=== PATIENT | female | born 1980 | race Caucasian/White ===

== ENCOUNTER → 2016-08-09 | Outpatient (CLI) | payer BC ==
[~2016-08-09] MED LIST: PRENTAB26 PO
== END | disposition home or self-care (01) ==
LOC: C.PAPS 08:04
PROVIDERS: ATTEND Obstetrics & Gynecology
DX: Z01.419 Encounter for gynecological examination (general) (routine) without abnormal findings (principal)

== ENCOUNTER → 2016-08-09 | Outpatient (CLI) | payer BC ==
[2016-08-13 21:14] LABS: CHLAMYDIA TRACH RNA*** NOT DETECTED (NOT DETECTED); GC (NEIS GONORRHOEAE)RNA** NOT DETECTED (NOT DETECTED)
== END | disposition home or self-care (01) ==
LOC: C.LABSPEC 15:42
PROVIDERS: ATTEND Obstetrics & Gynecology
DX: Z34.01 Encounter for supervision of normal first pregnancy, first trimester (principal)

== ENCOUNTER → 2016-09-24 | Outpatient (CLI) | payer BC ==
[2016-09-24 09:32] LABS: BASO % 0.2 %; BASO ABS # 0.01 K/uL (0-0.2); COMPLETE YES; EOS % 0.8 %; HEMATOCRIT 36.9 % (37-47); IG% 0.2 %; LYMPH % 26.1 %; LYMPH ABS # 1.62 K/uL (1.2-3.4); MEAN CELL VOLUME 90.2 fL (80-100); MEAN CORPUSCULAR HEMOGLOBIN 30.6 pg (25-34); MEAN CORPUSCULAR HGB CONC 33.9 g/dl (32-36); MONO % 6.1 %; NEUT % 66.6 %; PLATELET COUNT 235 K/uL (130-400); RED BLOOD COUNT 4.09 M/uL (4.2-5.4); WHITE BLOOD COUNT 6.21 K/uL (4.8-10.8)
[2016-09-24 09:58] LABS: GTGD 50 Grams
== END | disposition home or self-care (01) ==
LOC: C.LAB 07:04
PROVIDERS: ATTEND Obstetrics & Gynecology
DX: Z34.02 Encounter for supervision of normal first pregnancy, second trimester (principal)

== ENCOUNTER 2017-03-05 00:15 | Inpatient (IN) | payer BC ==
[~2017-03-05] VITALS: Ht 182.9 cm; Wt 137.4 kg
[2017-03-12 21:22] VITALS: Ht 182.9 cm; Wt 137.4 kg
[2017-03-12] MEDS ORDERED: PRENTAB26 PO (21:25)
[2017-03-12] MEDS ORDERED: LACTATED RINGER'S 1000ML 1,000 ML IV SCH (21:36)
[2017-03-12] MEDS ORDERED: LACTATED RINGER'S 1000ML 1,000 ML IV PRN (21:36)
[2017-03-12] MEDS ORDERED: DINOPROSTONE 10 MG INSERT PV STA (21:42)
[2017-03-12 22:04] LABS: HEMATOCRIT 36.6 % (37-47); MEAN CELL VOLUME 88.4 fL (80-100); MEAN CORPUSCULAR HEMOGLOBIN 27.5 pg (25-34); MEAN CORPUSCULAR HGB CONC 31.1 g/dl (32-36); MEAN PLATELET VOLUME 10.7 fL (7.4-10.4); PLATELET COUNT 246 K/uL (130-400); RED BLOOD COUNT 4.14 M/uL (4.2-5.4)
[2017-03-13] MEDS ORDERED: DINOPROSTONE 10 MG INSERT PV ONE ×2 (09:00→14:30)
[2017-03-13] MEDS ORDERED: BUPIVACAINE 0.25% 30 ML VIAL ONE (23:23)
[2017-03-13] MEDS ORDERED: EpHEDrine SULFATE INJ 50 MG/ML AMP ONE (23:23)
[2017-03-13] MEDS ORDERED: FENTANYL 2MCG/ML ROPIV 1.25MG/ML 100ML BAG EPI ONE (23:24)
[2017-03-13] MEDS ORDERED: FENTANYL CITRATE INJ 50 MCG/1 ML 2 ML VIAL ONE (23:24)
[2017-03-14] MEDS ORDERED: FENTANYL 2MCG/ML ROPIV 1.25MG/ML 100ML BAG EPI PRN (00:15)
[2017-03-14] MEDS ORDERED: LACTATED RINGER'S 1000ML 500 ML IV PRN ×2 (00:15→00:38)
[2017-03-14] MEDS ORDERED: NALOXONE HCL INJ 0.4 MG/1 ML VIAL/CARP IV PRN (00:15)
[2017-03-14] MEDS ORDERED: EpHEDrine SULFATE INJ 50 MG/ML AMP IV PRN (00:15)
[2017-03-14] MEDS ORDERED: OXYTOCIN 30 UNITS/500ML NSS IV PRN ×2 (00:45→07:15)
[2017-03-14] MEDS ORDERED: SUPERCREAM 0.870 % 15GM JAR EXT PRN (07:15)
[2017-03-14] MEDS ORDERED: ACETAMINOPHEN/CODEINE 300/30MG TAB PO PRN ×2 (07:15)
[2017-03-14] MEDS ORDERED: ACETAMINOPHEN 325 MG TAB PO PRN (07:15)
[2017-03-14] MEDS ORDERED: DIPHTHERIA/TETANUS/PERTUSSIS 0.5 ML SYR/VIAL IM. ONE (07:15)
[2017-03-14] MEDS ORDERED: OXYCODONE/ACETAMINOPHEN 5-325 TAB PO PRN (07:15)
[2017-03-14] MEDS ORDERED: HYDROCORTISONE ACETATE 25 MG SUPP PR PRN (07:15)
[2017-03-14] MEDS ORDERED: LANOLIN OINT EXT PRN ×2 (07:15)
[2017-03-14] MEDS ORDERED: BENZOCAINE 20% AER SPR 82.5 GM CAN EXT PRN (07:15)
[2017-03-14] MEDS ORDERED: IBUPROFEN 600 MG TAB PO PRN (07:15)
--- NOTE | 2017-03-14 08:13 | OPERATIVE REPORT ---
DATE OF OPERATION: 03/14/2017 DELIVERY NOTE Mrs. Birmingham is a 37-year-old 1, para 1. Present is IVF . She did receive Celestone 12 mg at about 29 weeks for a rash, 2 injections resolved the rash satisfactorily. She also had a liver profile done at that time, was normal. Blood type is A positive, rubella immune. Vaginal beta strep negative. She was brought in for induction being over her due date is 03/05/2017. Cervix was relatively unripe. Head was floating. Cervix was posterior 1 cm. She was started at Cervidil tapes. Every time we put in a Cervidil tape, it would fall out after about 6 hours. We ended up putting 3 of them in. After the third Cervidil tape, she basically started to labor on her own and the cervix thinned out, had dropped. She went about 3-4 cm and then requested and received epidural anesthesia. Following the epidural anesthesia, the membranes were ruptured surgically. Fluid was clear. She was then augmented with IV Pitocin. She obtained good pain relief from the epidural. She gradually went to full dilatation, pushed out a live female via direct occiput anterior position over an intact perineum. was suctioned through the mouth and the nose. Body was delivered without difficulty. Cord was clamped after delaying the cord clamping and putting the infant on the mother's abdomen as per her request. Once the cord stopped pulsating, it was clamped, cut by the father and cord blood was taken. With IV Pitocin running, the placenta was removed intact. Inspection of the perineum revealed a first-degree laceration. The vaginal mucosa was approximated with continuous suture of heavy Vicryl out on to beyond the hymenal ring. A deep suture of heavy Vicryl was used to approximate the bulbocavernosus muscle. Two individual sutures of Vicryl was used to approximate the perineal body and a running subcuticular suture of heavy Vicryl was used to approximate the perineal skin edges. Following this, vaginal exam including rectovaginal examination revealed no hematoma formation or sponges in the vagina. Hemostasis was good. Estimated blood loss was 300 mL. I attest to the content of the Intraoperative Record and any orders documented therein. Any exception s are noted below.
[2017-03-14] MEDS: PRENATAL VITAMIN TAB PO SCH (08:15)
[2017-03-14] MEDS: FERROUS SULFATE 325 MG TAB PO SCH (08:15)
[2017-03-14] MEDS: DOCUSATE SODIUM 100 MG CAP PO SCH ×2 (08:15→19:54)
--- NOTE | 2017-03-14 09:36 | Anesthesia Procedure Note ---
Anesthesia Epidural Removal Nt Date & Time Mar 14, 2017 at 09:36 Vital Signs Pain Intensity: 0.0 Notes Mental Status: alert / awake / arousable, participated in evaluation Nausea / Vomiting: adequately controlled Pain: adequately controlled Airway Patency, RR, SpO2: stable & adequate BP & HR: stable & adequate Hydration State: stable & adequate Neuraxial Anesthesia: was administered Anesthetic Complications: no major complications apparent, pt satisfied with anesthetic care Epidural: removed without complications, with tip intact
[2017-03-14 10:00] VITALS: BP 105/70; PULSE 94; TEMP 37.1; O2SAT 97
[2017-03-14 12:40] VITALS: BP 107/94; PULSE 105; TEMP 36.9; O2SAT 100
[2017-03-14 15:30] VITALS: BP 116/78; PULSE 105; TEMP 37
[2017-03-14 19:00] VITALS: BP 108/72; PULSE 86; TEMP 37
[2017-03-14 23:55] VITALS: BP 117/77; PULSE 80; TEMP 37; O2SAT 97
[2017-03-15 04:10] VITALS: BP 110/73; PULSE 87; TEMP 36.7; O2SAT 98
[2017-03-15 06:37] LABS: HEMATOCRIT 32.4 % (37-47)
--- NOTE | 2017-03-15 07:28 | Progress Note ---
Subjective Mar 15, 2017. Subjective conversation w/ patient Ambulation: ambulating normally Voiding: no voiding problems Passing Gas: Yes Diet Tolerance: Clear Liquids Lochia: Small Feeding Type: Breast Feeding Review of Systems Constitutional: + fever Objective Vital Signs Date Time Temp Pulse Resp B/P (MAP) Pulse Ox O2 Delivery O2 Flow Rate FiO2 03/15/17 04:10 36.7 87 18 110/73 (85) 98 Room Air 03/14/17 23:55 37.0 80 18 117/77 (90) 97 Room Air 03/14/17 23:55 97 Room Air 03/14/17 19:00 37.0 86 20 108/72 (84) Room Air 03/14/17 15:30 37.0 105 20 116/78 (91) Room Air 03/14/17 15:30 Room Air 03/14/17 12:40 36.9 105 18 107/94 (98) 100 Room Air 03/14/17 10:00 97 Room Air 03/14/17 10:00 37.1 94 18 105/70 (82) 97 Room Air Physical Exam General Appearance: WELL-APPEARING Respiratory/Chest: lungs clear Fundus: Firm, Non-Tender Extremities: no pedal edema, no calf tenderness Laboratory Results Last 24 Hours Test 03/15/17 06:02 Hemoglobin 10.3 g/dL Hematocrit 32.4 % Assessment and Plan Post- Day#: 1
--- NOTE | 2017-03-15 07:30 | Discharge Instructions ---
Discharge Instructions Date of Service Mar 15, 2017. Admission Reason for Admission: Induction Discharge Discharge Diagnosis / Problem: post term induction Discharge Goals Goal(s): Routine recovery after delivery Activity Recommendations Activity Limitations: as noted below ACTIVITY RECOMMENDATIONS: * Gradual return to full activity over the next 2-3 weeks. * No lifting - nothing heavier than baby over the next 2-3 weeks. * Do not engage in vigorous exercise, sexual activity or sports until cleared by your physician. * Do not drive or operate any motorized equipment until cleared by your physician. * You may shower/bathe daily. DIET: Resume Previous Diet If Breast-feeding: * Increase caloric intake by 500 calories, eat 3 well balanced meals, 2 high protein snacks a day and drink 6-8 8oz. glasses of fluid per day. BREAST CARE: If you are not breast feeding: * Wear a supportive bra 24 hours a day for one to two weeks. * Avoid stimulating your breasts and nipples as much as possible during the first few weeks after delivery. * When taking a shower, have the warm water hit your back, not breasts. * When your breasts feel full, apply ice packs. Usually three to four times a day helps ease the discomfort. * Take a mild pain medication (Tylenol / Motrin) when you are uncomfortable. If breast feeding: * Use breast milk to lubricate nipples. Lansinoh cream may be used for sore nipples. You do not need to remove cream prior to breast feeding. If using a different brand of cream, check the label for directions regarding removal of cream prior to nursing. * Wear a supportive bra. * If having problems with breasts or breast feeding, call a health consultant or your health care provider. OVER THE COUNTER MEDICATION: * For discomfort or pain, you may use Acetaminophen (Tylenol), Ibuprofen (Advil ), or Naproxen (Aleve) following the package directions. * For constipation you may use Colace following the package directions. SPECIAL CARE INSTRUCTIONS: * Vaginal rest (no tampons, douching, intercourse) until after doctor 's visit. * control as discussed with doctor. * Verbalizes understanding of car seat law as reviewed with patient nursing. * Car Seat hand-out given and reviewed with patient by nursing. * Shaken baby information reviewed with patient by nursing. Call you doctor if: * Temperature greater than or equal to 100.4 degrees F or 38.0 degrees C. Take your temperature twice daily for a week. * Bleeding becomes heavier than the heaviest part of your period - saturating a sanitary pad within an hour. * Passing large clots. * Bleeding has a foul smelling odor. * Signs and symptoms of phlebitis: leg pain, warm, red or swollen area on leg. * "Baby Blues" lasting longer than two weeks. ++ If you have had a and incision has increased pain, redness, swelling, presence of any drainage, or if the incision starts to open up. If you have any questions or concerns, call your health care practitioner at [phone]. FOLLOW-UP VISIT: Please call the office at to schedule a 6 week examination. . Instructions / Follow-Up Instructions / Follow-Up ACTIVITY RECOMMENDATIONS: * Gradual return to full activity over the next 2-3 weeks. * No lifting - nothing heavier than baby over the next 2-3 weeks. * Do not engage in vigorous exercise, sexual activity or sports until cleared by your physician. * Do not drive or operate any motorized equipment until cleared by your physician. * You may shower/bathe daily. DIET: Resume Previous Diet If Breast-feeding: * Increase caloric intake by 500 calories, eat 3 well balanced meals, 2 high protein snacks a day and drink 6-8 8oz. glasses of fluid per day. BREAST CARE: If you are not breast feeding: * Wear a supportive bra 24 hours a day for one to two weeks. * Avoid stimulating your breasts and nipples as much as possible during the first few weeks after delivery. * When taking a shower, have the warm water hit your back, not breasts. * When your breasts feel full, apply ice packs. Usually three to four times a day helps ease the discomfort. * Take a mild pain medication (Tylenol / Motrin) when you are uncomfortable. If breast feeding: * Use breast milk to lubricate nipples. Lansinoh cream may be used for sore nipples. You do not need to remove cream prior to breast feeding. If using a different brand of cream, check the label for directions regarding removal of cream prior to nursing. * Wear a supportive bra. * If having problems with breasts or breast feeding, call a health consultant or your health care provider. OVER THE COUNTER MEDICATION: * For discomfort or pain, you may use Acetaminophen (Tylenol), Ibuprofen (Advil ), or Naproxen (Aleve) following the package directions. * For constipation you may use Colace following the package directions. SPECIAL CARE INSTRUCTIONS: * Vaginal rest (no tampons, douching, intercourse) until after doctor 's visit. * control as discussed with doctor. * Verbalizes understanding of car seat law as reviewed with patient nursing. * Car Seat hand-out given and reviewed with patient by nursing. * Shaken baby information reviewed with patient by nursing. Call you doctor if: * Temperature greater than or equal to 100.4 degrees F or 38.0 degrees C. Take your temperature twice daily for a week. * Bleeding becomes heavier than the heaviest part of your period - saturating a sanitary pad within an hour. * Passing large clots. * Bleeding has a foul smelling odor. * Signs and symptoms of phlebitis: leg pain, warm, red or swollen area on leg. * "Baby Blues" lasting longer than two weeks. ++ If you have had a and incision has increased pain, redness, swelling, presence of any drainage, or if the incision starts to open up. If you have any questions or concerns, call your health care practitioner at [phone]. FOLLOW-UP VISIT: Please call the office at to schedule a 6 week examination. Current Hospital Diet Patient's current hospital diet: Gluten Free Diet Discharge Diet Recommended Diet: Regular Diet Pending Studies Studies pending at discharge: no Medical Emergencies . Who to Call and When: Medical Emergencies: If at any time you feel your situation is an emergency, please call 911 immediately. . Non-Emergent Contact Non-Emergency issues call your: Tack Puller Machine Call Non-Emergent contact if: temperature is above 100.5 . . "Provider Documentation" section prepared by Edu Moreno. . VTE Core Measure Inpt VTE Proph given/why not?: Treatment not indicated
[2017-03-15 07:40] VITALS: BP 104/66; PULSE 68; TEMP 37.2; O2SAT 97
[2017-03-15] MEDS: FERROUS SULFATE 325 MG TAB PO SCH (08:16)
[2017-03-15] MEDS: PRENATAL VITAMIN TAB PO SCH (08:16)
[2017-03-15] MEDS: DOCUSATE SODIUM 100 MG CAP PO SCH (08:16)
[2017-03-15 15:55] VITALS: BP_DIAS 66; PULSE 68; TEMP 37.2
[2017-03-15] MEDS ORDERED: BISACODYL 5 MG TABEC PO SCH (20:00)
[2017-03-16] MEDS ORDERED: BISACODYL 10 MG SUPP PR PRN (07:00)
== END 2017-03-15 16:45 | disposition home or self-care (01) | DRG 775 ==
LOC: C.LD 03-12 20:30 → C.OBG 03-14 10:13
PROVIDERS: ADMIT Obstetrics & Gynecology; ATTEND Obstetrics & Gynecology
PROC: 0KQM0ZZ Repair Perineum Muscle, Open Approach (ICD-10-PCS; principal; 2017-03-13)
PROC: 10E0XZZ Delivery of Products of Conception, External Approach (ICD-10-PCS; principal; 2017-03-13)
PROC: 3E0P7GC Introduction of Other Therapeutic Substance into Female Reproductive, Via Natural or Artificial Opening (ICD-10-PCS; principal; 2017-03-13)
DX: O48.0 Post-term pregnancy (principal); O70.1 Second degree perineal laceration during delivery; Z37.0 Single live birth; O09.513 Supervision of elderly primigravida, third trimester; Z3A.41 41 weeks gestation of pregnancy

== ENCOUNTER 2022-02-27 17:23 | Inpatient (IN) ==
--- NOTE | 2022-02-27 18:52 | XRay Report ---
XR chest 2V PA/lateral CLINICAL HISTORY: Shortness of breath. COMPARISON STUDY: Chest radiograph October 08, 2012. FINDINGS: Lung volumes are normal. Lungs are clear. There is no pneumothorax or pleural effusion. Car diac size is normal. Mediastinal contours are normal. There is no evidence for pulmonary edema. IMPRESSION: No acute cardiopulmonary findings. ACT 112: Negative or not required by law. Electronically signed by: John Montero M.D. 02/27/2022 6:51 PM
[2022-02-27 19:02] LABS: Basophils # (auto) 0.05 K/uL (0-0.2); Basophils % (auto) 0.6 %; Eosinophils # (auto) 0.22 K/uL (0-0.50); Eosinophils % (auto) 2.5 %; Hematocrit (blood only) 41.4 % (34.1-44.9); Hemoglobin 13.4 g/dl (12.0-16.0); Immature Granulocytes # (auto) 0.02 K/uL (0.00-0.02); Immature Granulocytes % (auto) 0.2 %; Lymphocytes # (auto) 2.59 K/uL (1.2-3.4); Lymphocytes % (auto) 29.7 %; Mean Corpuscular Hemoglobin 27.9 pg (25.0-34.0); Mean Corpuscular Hgb Conc 32.4 g/dL (32.0-36.0); Mean Corpuscular Volume 86.1 fL (80.0-100.0); Mean Platelet Volume 10.2 fL (9.4-12.3); Monocytes # (auto) 0.63 K/uL (0.24-0.82); Monocytes % (auto) 7.2 %; Neutrophils # (auto) 5.21 K/uL (1.4-6.5); Neutrophils % (auto) 59.8 %; Platelet Count 239 K/uL (130-400); RDW Coefficient of Variation 13.6 % (11.5-14.5); RDW Standard Deviation 42.5 fL (36.4-46.3); Red Blood Count 4.81 M/uL (3.93-5.22); White Blood Count 8.72 K/ul (4.8-10.8)
[2022-02-27 19:20] LABS: Albumin Globulin Ratio 1.2 (0.9-2); Albumin Level 4.6 gm/dl (3.4-5.0); BUN Creatinine Ratio 15.7 (10-20); Bilirubin,Total 0.5 mg/dl (0.2-1.0); Creatinine Clr Calc Pharmacy 133.2 ml/min; Est GFR (African American) 93.3 ml/min; Est GFR (Non-African American) 80.5 ml/min; Globulin 3.7 gm/dl (2.5-4.0); Magnesium 2.1 mg/dl (1.7-2.4); Potassium 3.7 mmol/L (3.5-5.1); Total Protein 8.3 gm/dl (6.0-8.3)
[2022-02-27 19:21] LABS: Partial Thromboplastin Time 26.2 Seconds (21.0-31.0); Prothrombin Time 10.9 Seconds (9.0-12.0)
[2022-02-27 19:22] LABS: D Dimer 7610 ug/L FEU (0-500)
[2022-02-27 19:26] LABS: Troponin I High Sensitivity 5.3 pg/ml (0-14)
--- NOTE | 2022-02-27 20:57 | Emergency Department Note ---
Impression & Plan Bilateral pulmonary embolism, Acute deep vein thrombosis (DVT) of left lower extremity Admit to the [facility] ED Provider Note NAME: ABBE ELLISON AGE: 42 SEX: F ARRIVES VIA: Walk-In INFORMANT: Patient ED PROVIDER(S): Nancy Nance DO CHIEF COMPLAINT: Left leg pain and shortness of breath PLAN: Disposition: Admit to the [facility] Condition: Guarded MEDICAL DECISION MAKING: This is a 42-year-old female who recently started estrogen who presents to the emergency department with pain and swelling in her left leg and shortness of breath. Patient had a significantly elevated D-dimer. Ultrasound confirms extensive DVT of the left lower extremity the patient went on to have a CT scan of the chest because of the exertional shortness of breath and this confirms bilateral pulmonary emboli with right heart strain. The patient was bolused with IV heparin and started on a heparin drip. The patient remained hemodynamically stable. I discussed the case with [facility] and they will evaluate for further management. Triage Nursing notes reviewed and agree with them. Vital Signs: reviewed and remarkable for hypertension and tachycardia Differential diagnosis: DVT, PE, anxiety ER treatment provided: IV heparin bolus IV heparin drip Diagnostics interpreted by me: ECG: Sinus tachycardia at [address] segment elevation or signs of ischemia. There is no ectopy. Cardiac Monitoring: Sinus tachycardia at 104 Laboratory studies: See below Imaging studies: As per stat rad CTA chest: Bilateral pulmonary emboli noted involving the distal left main pulmonary artery extending into the apical segments and left posterior basal segments. There is also clot burden in the inferior lingular segments. Additionally there is pulmonary emboli in the proximal right apical segments, the medial right middle lobe and the proximal posterior basal segments. There is CT evidence of right heart strain with RV/LV ratio measuring 1.02 No focal airspace consolidation. No pleural effusion or pneumothorax. The thoracic aorta is unremarkable. Only minimal trace pericardial effusion noted in the superior pericardial recess. No significant mediastinal or hilar lymphadenopathy. HPI: 42/F arrives for evaluation of left leg swelling/pain and shortness of breath. The patient started on estrogen 1 week ago. She developed some pain in the right side of her neck and shortness of breath in the following days. Patient then noticed swelling and pain in her left lower extremity. Patient then noted her shortness of breath was increasing especially with exertion. ROS: See above HPI for pertinent positives & negatives. A total of 10 systems reviewed and were otherwise negative. PAST MEDICAL HISTORY:Urinary incontinence with her menstrual cycle for which she was started on estrogen. PAST SURGICAL HISTORY:See Below FAMILY HISTORY:See Below SOCIAL HISTORY:Patient lives with her and children; she does not smoke HOME MEDICATIONS:See list ALLERGIES:See list VITALS:See Below PHYSICAL EXAMINATION: HEENT: Head - normocephalic and atraumatic. Pupils are equal, round, and reactive to light. Extraocular eye muscles are intact, and sclera are anicteric. Nose - moist nasal mucosa without discharge. Mouth - moist buccal mucosa. Oropharynx is nonerythematous and there is no tonsillar exudate or edema noted. Neck: Supple; no cervical lymphadenopathy noted Heart: Tachycardic rate and regular rhythm. There is a normal S1 and S2 with no murmurs, clicks, or gallops appreciated. Lungs: Clear to auscultation bilaterally with no wheezes, rales, or rhonchi. Abdomen: Soft, completely nontender, nondistended, with good bowel sounds. There are no palpable pulsatile masses or hepatosplenomegaly. There is no guarding, rigidity, or rebound noted. Extremities: Patient has edema noted of the left leg and tenderness to palpation over the left posterior thigh and left calf. Skin: warm and dry with good turgor and no rashes. ED COURSE: Times/Reassessments: 840: The patient was evaluated in room B3. A complete history and physical was performed. An IV lock was initiated. Laboratory studies were drawn as above. Patient protocols were placed and the patient went for an ultrasound of the left lower extremity. An order was placed for continuous cardiac monitoring. The patient was in a sinus tachycardia at 104. O2 saturations were 100%. The patient went for CT of the chest. Upon returning from radiology, I reviewed the results of the ultrasound with the patient and she was bolused with IV heparin and started on heparin drip. I reviewed the results of the CT scan with the patient. I discussed the case with [facility]ist. I have personally spent greater than 30 minutes of critical care time in the direct management of this patient. This includes bedside care, interpretation of diagnostic studies, and testing, discussion with consultants, patient, and family members, and other required patient management activities. This 30 minutes is in excess of all separately billable procedures. Nancy Nance DO Past Med/Surg History Social History Smoking Status: Never smoker Feels Safe at Home: Yes Allergies Allergies Allergy/AdvReac Type Severity Reaction Status Date / Time gluten Allergy Intermediate GI SYMPTOMS Verified 02/27/22 20:48 grass pollen-perennial rye, Allergy Unknown . Verified 02/27/22 20:48 standar peanut Allergy Unknown HIVES Verified 02/27/22 20:48 ragweed pollen Allergy Unknown . Verified 02/27/22 20:48 Home Meds Home Medications Medication Instructions Recorded Confirmed estradiol 0.01% (0.1 mg/gram) 1 applic vaginal 2XWK 02/27/22 02/27/22 vaginal cream Results & Data (ED) Vital Signs Vital Signs - 24 hr 02/27/22 17:46 02/27/22 21:00 02/27/22 21:00 Temperature 36.5 C Temperature Source Temporal Artery Scan Pulse Rate 104 H 107 H Pulse Rate [Apical] 106 H Respiratory Rate 20 18 Respiratory Effort / Characteristics Spontaneous Respiratory Depth Normal Respiratory Pattern Regular Blood Pressure 143/111 H Blood Pressure [Left Arm] 151/85 H Blood Pressure Mean 121 Blood Pressure Mean [Left Arm] 107 Blood Pressure Position Sitting Pulse Oximetry 100 99 99 Oxygen Delivery Method Room Air Room Air Room Air Sepsis Recent Fever Within 48 Hours No Sepsis New/Unexplained Change in Mental Status No Sepsis Action Taken by Nursing No Action Required Laboratory Data Result diagrams: 02/27/22 18:44 02/27/22 18:44 Lab Results 02/27/22 02/27/22 02/27/22 Range/Units 18:44 18:44 18:44 WBC 8.72 (4.8-10.8) K/ul RBC 4.81 (3.93-5.22) M/uL Hgb 13.4 (12.0-16.0) g/dl Hct 41.4 (34.1-44.9) % MCV 86.1 (80.0-100.0) fL MCH 27.9 (25.0-34.0) pg MCHC 32.4 (32.0-36.0) g/dL RDW Std Deviation 42.5 (36.4-46.3) fL RDW Coeff of [place]je[place] 13.6 (11.5-14.5) % Plt Count 239 (130-400) K/uL MPV 10.2 (9.4-12.3) fL Immature Gran % (Auto) 0.2 % Neut % (Auto) 59.8 % Lymph % (Auto) 29.7 % Talbot % (Auto) 7.2 % Eos % (Auto) 2.5 % Baso % (Auto) 0.6 % Neut # (Auto) 5.21 (1.4-6.5) K/uL Lymph # (Auto) 2.59 (1.2-3.4) K/uL Talbot # (Auto) 0.63 (0.24-0.82) K/uL Eos # (Auto) 0.22 (0-0.50) K/uL Baso # (Auto) 0.05 (0-0.2) K/uL Immature Gran # (Auto) 0.02 (0.00-0.02) K/uL PT 10.9 (9.0-12.0) Seconds INR 1.0 (0.9-1.1) APTT 26.2 (21.0-31.0) Seconds PTT Ratio 1.0 D-Dimer 7610 H* (0-500) ug/L FEU Sodium 136 (136-145) mmol/L Potassium 3.7 (3.5-5.1) mmol/L Chloride 101 (98-107) mmol/L Carbon Dioxide 25 (21-32) mmol/L Anion Gap 10 (3-11) BUN 14 (6-23) mg/dl Creatinine 0.89 (0.6-1.2) mg/dl Est Cr Clr Drug Dosing 133.2 ml/min Est GFR ( Amer) 93.3 ml/min Est GFR (Non-Af Amer) 80.5 ml/min BUN/Creatinine Ratio 15.7 (10-20) Glucose 88 (70-99(Fasting)) mg/dl Calcium 10.0 (8.5-10.1) mg/dl Magnesium 2.1 (1.7-2.4) mg/dl Total Bilirubin 0.5 (0.2-1.0) mg/dl AST 15 (13-39) U/L ALT 11 (7-52) U/L Alkaline Phosphatase 99 (34-104) U/L Troponin I High Sens 5.3 (0-14) pg/ml Total Protein 8.3 (6.0-8.3) gm/dl Albumin 4.6 (3.4-5.0) gm/dl Globulin 3.7 (2.5-4.0) gm/dl Albumin/Globulin Ratio 1.2 (0.9-2) Administered Medications Discontinued Medications Ioversol (Optiray 300 500ml) 120 ml IV ONCE ONE Stop: 02/27/22 21:15 Last Admin: 02/27/22 21:16 Dose: 120 ml Documented By: [facility] Imaging Data Radiologist's Impression: Chest X-Ray 02/27/22 17:51 XR chest 2V PA/lateral CLINICAL HISTORY: Shortness of breath. COMPARISON STUDY: Chest radiograph October 08, 2012. FINDINGS: Lung volumes are normal. Lungs are clear. There is no pneumothorax or pleural effusion. Cardiac size is normal. Mediastinal contours are normal. There is no evidence for pulmonary edema. IMPRESSION: No acute cardiopulmonary findings. ACT 112: Negative or not required by law. Electronically signed by: John Montero M.D. 02/27/2022 6:51 PM Venous Doppler Study 02/27/22 18:42 LEFT LOWER EXTREMITY VENOUS DOPPLER CLINICAL HISTORY: r/o dvt COMPARISON STUDY: No previous studies for comparison. TECHNIQUE: Sonography of the deep venous system of the left lower extremity was performed. Compression and augmentation were evaluated. FINDINGS: Extensive deep venous thrombus within the left lower extremity is noted. Specifically, there is occlusive thrombus within the distal left femoral, popliteal, posterior tibial and peroneal veins. There is superficial thrombus within the left gastrocnemius veins. IMPRESSION: Extensive deep venous thrombus within the left lower extremity. ACT 112: Negative or not required by law. Electronically signed by: John Montero M.D. 02/27/2022 8:56 PM Discharge Plan Visit Data Chief Complaint: Leg Injury/Pain Stated Complaint: POSSIBLE BLOOD CLOT IN L LEG ED Provider: Nancy Nance Discharge Problem: Bilateral pulmonary embolism, Acute deep vein thrombosis (DVT) of left lower extremity Forms Stand Alone Forms: [facility] Prescriptions Prescriptions: No Action estradiol 0.01 % (0.1 mg/gram) cream 1 applic vaginal 2XWK Rx Instructions: apply 0.5 gm around urethra Referrals Referrals: PCP,NO [Physician] -
--- NOTE | 2022-02-27 20:57 | Ultrasound Report ---
LEFT LOWER EXTREMITY VENOUS DOPPLER CLINICAL HISTORY: r/o dvt COMPARISON STUDY: No previous studies for comparison. TECHNIQUE: Sonography of the deep venous system of the left lower extremity was performed. Compressi on and augmentation were evaluated. FINDINGS: Extensive deep venous thrombus within the left lower extremity is noted. Specifically, ther e is occlusive thrombus within the distal left femoral, popliteal, posterior tibial and peroneal vein s. There is superficial thrombus within the left gastrocnemius veins. IMPRESSION: Extensive deep venous thrombus within the left lower extremity. ACT 112: Negative or not required by law. Electronically signed by: John Montero M.D. 02/27/2022 8:56 PM
[2022-02-27] MEDS ORDERED: OPTIRAY 300 500mL IV ONE (21:14)
[2022-02-27] MEDS ORDERED: Heparin IV Adult Wt-Based Standard WITH Bolus Protocol IV STA (21:39)
[2022-02-27] MEDS ORDERED: HEPARIN SOD (PORCINE) 1000 UNIT/ML IV ONE (21:54)
[2022-02-27] MEDS: HEPARIN SODIUM/DEXTROSE 25,000 UNITS/500 ML BAG IV SCH (22:02)
--- NOTE | 2022-02-27 23:07 | History & Physical Report ---
Date of Service February 27, 2022 Assessment & Plan (1) Bilateral pulmonary embolism: Plan: Patient with bilateral pulmonary embolism - CT chest noting right heart strain- non-diagnostic obtain ECHO in morning - PESI- I - HsCTNI negative - BNP pending - No evidence of organ dysfunction and not hypoxic, blood pressure stable- Shock index: 0.833 - Tachycardia 100-110 - Hypercoagulable labs sent - no notable inciting event - Health screenings completed - reports normal PAP/Mammo- unable to verify reports - NO wbc elevation or elevated NLR (2) Acute deep vein thrombosis (DVT) of left lower extremity: Plan: Extensive left lower leg thrombus extending to distal femoral vein - heparin infusion as above - deep as well as superficial DVT- Vascular surgery consult for evaluation of therapeutics - follow wbc and temperature curve- for any infection related to superficial thrombus (3) Morbid obesity with BMI of 40.0-44.9, adult: Plan: Weight reduction would be beneficial to reduce overall CV morbidity - HGB A1C in AM - Lipids in AM - Follow hemodynamics (4) Urinary incontinence: Plan: Hold Estrogen Cream History of Present Illness Primary Care Provider: JULISA Chu 42 YOF with medical history of: Urinary incontinence, Obesity. Patient comes to the EMD for 4 day history of dyspnea associated with left leg pain. The patient noted her dyspnea began while walking up stairs. The next day she noted pain in behind her left knee. This progressed to increase in dyspnea when just walking and pain extending down to her calf, with increase in foot and ankle swelling this morning. Patient originally thought that she strained her left knee, as she was sitting on a bed cleaning out a closet for a few hours. She previously had surgery on that knee and it does get sore. In the EMD the patient had routine labs performed to include d- dimer. D-dimer was elevated and patient had venous ultrasound performed while in triage. This returned with extensive DVT of the left lower extremity to include distal femoral, popliteal, post tib and peroneal with superficial thrombus of the gastroc. She then had a CTA of the chest performed with bilateral pulmonary embolisms. CT scan reports right heart strain. minimal trace pericardial effusion. Patient states that she has not been on any long car trips, or flights, no trauma to the leg. She does have a young daughter so is not sedentary. Patient is tachycardic on arrival with HR 110-100, BP stable, SPO2 100-99% on room air and RR 18-20. HScTNI not elevated, BNP is drawn on admission. PESI score of I. Patient will be admitted for anticoagulation and transition to oral agent noting her obesity and extent of left lower leg DVT. Hypercoagulable work up initiated prior to Heparin bolus and infusion. Admit to tele, obtain ECHO in am. Consult Vascular Surgery for any therapeutics for her left leg DVT. Patient has recently had PAP smear completed- patient reports Negative , Mammogram patient reports: Negative. She has no family history known of any clotting disorders or blood clots. She is vaccinated for COVID and has not had this in the past that she knows of. COVID test on admission is: NEGATIVE Allergies Allergy/AdvReac Type Severity Reaction Status Date / Time gluten Allergy Intermediate GI SYMPTOMS Verified 02/27/22 20:48 grass pollen-perennial rye, Allergy Unknown . Verified 02/27/22 20:48 standar peanut Allergy Unknown HIVES Verified 02/27/22 20:48 ragweed pollen Allergy Unknown . Verified 02/27/22 20:48 Home Medications Medication Instructions Recorded Confirmed Type estradiol 0.01% (0.1 mg/gram) 1 applic vaginal 2XWK 02/27/22 02/27/22 History vaginal cream Past Med/Surg History Medical History Acute deep vein thrombosis (DVT) of left lower extremity Bilateral pulmonary embolism History of in vitro fertilization Morbid obesity with BMI of 40.0-44.9, adult Urinary incontinence Surgical History H/O knee surgery Family History Grandfather Heart disease Social History Smoking Status: Never smoker Hx Alcohol Use: No Hx Substance Use: No Preferred Language: Turkish Communication Ability: Effective Cloak Room Attendant Required: No Beliefs That Will Affect Care: None Current Living Situation: Family Feels Safe at Home: Yes Review of Systems Review of Systems: REVIEW OF SYSTEMS: Constitutional: No fever, sweats or chills Eyes: No diplopia, no worsening or blurred vision ENT: normal hearing, no trouble swallowing Respiratory: (+) dyspnea with activity, No cough, sputum, dyspnea at rest Cardiovascular: No chest pain, tightness or palpitations Abdomen: No pain, nausea, vomiting, diarrhea or constipation Musculoskeletal: (+) left lower leg pain and swelling, Neurologic: No weakness, numbness/tingling, or balance problems Psychiatric: No anxiety or depression Skin: No rash or itch Physical Exam Physical Exam: PHYSICAL EXAM: General: awake, alert, no apparent distress Head: Normocephalic, atraumatic ENT: PERRLA, EOMI, no pharyngeal exudate, mucous membranes moist Neuro: AAO x 3, speech clear and appropriate, strength intact bilaterally 5/5, sensation intact and equal all extremities and dermatomes, no pronator drift Chest: equal rise and fall of the chest, no accessory muscle use, no heaves or thrills, Clear to auscultation, on room air, Cardiac: Regular rate and rhythm, telemetry reviewed, skin warm dry, cap refill <3 seconds, peripheral pulses +2 no JVD, no murmur, trace edema to left lower leg GI: NABS x 4 quadrants, soft, nontender to palpation, no rebound, guarding or tenderness : Spontaneously voiding, no pain, no CVA tenderness, Psych: Normal mood and affect Skin: left lower leg swelling, warm, non painful, right normal Results & Data Results & Data ([facility]) Vital Signs (Past 12 Hours) Vital Signs Temp Pulse Pulse Resp BP BP Pulse Ox 02/27/22 21:00 107 H 99 02/27/22 21:00 106 H 18 151/85 H 99 02/27/22 17:46 36.5 C 104 H 20 143/111 H 100 O2 Del Method 02/27/22 21:00 Room Air 02/27/22 21:00 Room Air 02/27/22 17:46 Room Air Laboratory Results Abnormal lab results 02/27/22 Range/Units 18:44 D-Dimer 7610 H* (0-500) ug/L FEU Diagnostic Findings Chest X-Ray 02/27/22 17:51 XR chest 2V PA/lateral CLINICAL HISTORY: Shortness of breath. COMPARISON STUDY: Chest radiograph October 08, 2012. FINDINGS: Lung volumes are normal. Lungs are clear. There is no pneumothorax or pleural effusion. Cardiac size is normal. Mediastinal contours are normal. There is no evidence for pulmonary edema. IMPRESSION: No acute cardiopulmonary findings. ACT 112: Negative or not required by law. Electronically signed by: John Montero M.D. 02/27/2022 6:51 PM Venous Doppler Study 02/27/22 18:42 LEFT LOWER EXTREMITY VENOUS DOPPLER CLINICAL HISTORY: r/o dvt COMPARISON STUDY: No previous studies for comparison. TECHNIQUE: Sonography of the deep venous system of the left lower extremity was performed. Compression and augmentation were evaluated. FINDINGS: Extensive deep venous thrombus within the left lower extremity is noted. Specifically, there is occlusive thrombus within the distal left femoral, popliteal, posterior tibial and peroneal veins. There is superficial thrombus within the left gastrocnemius veins. IMPRESSION: Extensive deep venous thrombus within the left lower extremity. ACT 112: Negative or not required by law. Electronically signed by: John Montero M.D. 02/27/2022 8:56 PM CTA CHEST: STAT/RAD Bilateral Pulmonary emboli noted involving the distal left main pulmonary artery extending in the apical segments and left posterior basal segments. There is also clot burden in the inferior lingular segments. Additionally, there is pulmonary emboli in the proximal right apical segments, the medial right middle lobe and in the proximal posterior basal segments. There is CT evidence for right heart strain with the RV/LV ration measuring 1.02. NO focal airspace consolidation. No plueral effusion or pneumothorax. The thoracic aorta is unremarkable. Only minimal trace pericardial effusion noted in the superior pericardial recess. No significant mediastinal or hilar adenopathy. Medications Administered Home Medications estradiol 0.01% (0.1 mg/gram) vaginal cream 1 applic vaginal 2XWK 02/27/22 [History Confirmed 02/27/22] Active Medications Heparin Sodium/Dextrose (Heparin Sodium/Dextrose) 25,000 units in 500 mls @ 36 mls/hr IV .[id number] [facility]; Protocol Stop: 03/29/22 21:59 Last Admin: 02/27/22 22:02 Dose: 1,800 units/hr, 36 mls/hr ECG Additional Comments: Sinus tachycardia Possible Left atrial enlargement Borderline ECG No previous ECGs available Code Status & VTE Plan Code Status CODE: FULL VTE: SCDS, Heparin infusion VTE Prophylaxis Plan VTE Prophylaxis will be ordered: Yes Supervising Physician Co-Signing Physician Notes Patient seen and examined, chart reviewed, case discussed with JULISA Ashley and I agree with the assessment and plan as above. In brief, patient is a 42yo female presenting with extensive LLE DVT and bilateral PEs. Patient with no personal or family history of VTE, no trauma, age appropriate cancer screening (Pap and Mammogram) are UTD and Negative. Covid is NEGATIVE. No present SOB or chest pain HD stable, minimal tachycardia now improved On exam she is resting comfortably, NAD HEENT - NC/AT, PERRL, MMM Heart - +S1/S2, regular, no m/r/g Lungs - CTA Abd - soft, NT/ND Ext - LLE edema, mild tenderness. Palpable pulses. Mild erythema. Neuro - grossly nonfocal Assessment/Plan 42yo female presenting with extensive LLE VTE and bilateral PEs with right heart strain noted on CT. VTE seems to be non-provoked. HD stable. Adequate oxygenation on room air -Admit to PCU -Check 2D echo in AM -Hypercoag workup ordered - AT-III, Factor2, Factor V leiden, Homocysteine, Lupus anticoagulant, Protein C and S -Treatment with Heparin gtt -Vascular surgery consultation re: treatment of LLE DVT, large clot burden -Remainder of plan as above PG Care Time/CCT Total # of Minutes Spent Total Time Spent with Patient: Total time spent is greater than 50% in coordination of care (as documented) at patient's floor/unit and/or counseling patient: Coding Level of Care Code 01288 Initial Inpt Care Lvl 3 Diagnoses Bilateral pulmonary embolism I26.99 Acute deep vein thrombosis (DVT) of left lower extremity I82.402 Morbid obesity with BMI of 40.0-44.9, adult E66.01; Z68.41 Urinary incontinence R32
[2022-02-27] MEDS ORDERED: ACETAMINOPHEN 325 MG TAB PO PRN (23:50)
[2022-02-27] MEDS ORDERED: ONDANSETRON INJ 2 MG/ML 2 ML VIAL IV PRN (23:50)
[2022-02-28 04:30] LABS: Basophils # (auto) 0.02 K/uL (0-0.2); Basophils % (auto) 0.3 %; Eosinophils # (auto) 0.15 K/uL (0-0.50); Eosinophils % (auto) 2.3 %; Hematocrit (blood only) 37.1 % (34.1-44.9); Hemoglobin 12.1 g/dl (12.0-16.0); Immature Granulocytes # (auto) 0.02 K/uL (0.00-0.02); Immature Granulocytes % (auto) 0.3 %; Lymphocytes % (auto) 31.8 %; Mean Corpuscular Hemoglobin 28.1 pg (25.0-34.0); Mean Corpuscular Hgb Conc 32.6 g/dL (32.0-36.0); Mean Corpuscular Volume 86.1 fL (80.0-100.0); Monocytes # (auto) 0.48 K/uL (0.24-0.82); Monocytes % (auto) 7.3 %; Neutrophils # (auto) 3.84 K/uL (1.4-6.5); Platelet Count 198 K/uL (130-400); RDW Coefficient of Variation 13.6 % (11.5-14.5); RDW Standard Deviation 42.5 fL (36.4-46.3); Red Blood Count 4.31 M/uL (3.93-5.22); White Blood Count 6.61 K/ul (4.8-10.8)
[2022-02-28 04:47] LABS: INR 1.1 (0.9-1.1); Prothrombin Time 11.2 Seconds (9.0-12.0)
[2022-02-28 04:56] LABS: BUN Creatinine Ratio 15.3 (10-20); Calcium 8.8 mg/dl (8.5-10.1); Chol HDL Ratio 4.5 (0-5); Creatinine Clr Calc Pharmacy 139.5 ml/min; Est GFR (African American) 98.6 ml/min; Est GFR (Non-African American) 85.1 ml/min; Potassium 3.9 mmol/L (3.5-5.1)
[2022-02-28 07:20] LABS: Partial Thromboplastin Ratio 1.3
[2022-02-28 08:09] LABS: Estimated Average Glucose 117 mg/dl; Hemoglobin A1C 5.7 % (4.5-5.6)
--- NOTE | 2022-02-28 08:52 | CT Scan Report ---
CT ANGIOGRAM OF THE CHEST CLINICAL HISTORY: Chest tightness. Leg pain and swelling. Elevated d-dimer. COMPARISON STUDY: Chest x-ray dated 02/27/2022. TECHNIQUE: Following the IV administration of 120 cc of Optiray 300, CT angiogram of the chest was pe rformed from the upper abdomen to the thoracic inlet utilizing the pulmonary embolus protocol. Images are reviewed in the axial, sagittal, and coronal planes. 3-D MIPS images are created and assessed. I V contrast was administered without complication. A dose lowering technique was utilized adhering to the principles of ALARA. CT DOSE: 1026.14 mGy.cm FINDINGS: Thyroid: Imaged portions of the thyroid gland are normal in size and attenuation. Thoracic aorta: The thoracic aorta is normal in caliber and demonstrates standard 3-vessel arch anato my. No dissection is seen. Pulmonary vasculature: The pulmonary trunk is normal in caliber. There are fairly extensive bilateral pulmonary emboli. Thrombus is seen within the right middle and lower lobe pulmonary arteries extendi ng into segmental and subsegmental branches. There is also segmental and subsegmental pulmonary embol us within branches the right upper lobe pulmonary artery. Thrombus seen within the distal left main p ulmonary artery. This extends into the left upper and left lower lobe pulmonary arteries into segment al and subsegmental branches. There are also segmental and subsegmental emboli within the lingular ve ssels. Heart: The heart is normal in size and without pericardial effusion. Flattening of the interventricul ar septum can be seen with right heart strain. Lungs and pleural spaces: Minimal patchy airspace opacities are seen in the right middle lobe on imag e #[id number]. The left lung is clear. No pleural effusion is identified. A fat-containing Bochdalek hernia is noted at the right lung base. The trachea and central airways are patent. Mediastinum: There is no mediastinal lymphadenopathy. Ella: Clear. Axillae: There is no axillary lymphadenopathy. Upper abdomen: Partially visualized upper abdominal viscera is within normal limits. Skeletal structures: No lytic or blastic bony lesions are seen. Postoperative change is noted in the left shoulder. IMPRESSION: 1. Extensive bilateral pulmonary emboli as above. 2. Minimal groundglass opacities are seen in the right middle lobe. This could represent a pneumoniti s versus developing infarct. 3. Flattening of the interventricular septum can be seen with right heart strain. 4. Additional findings as above. ACT 112: Negative or not required by law. Electronically signed by: Bon Chapman M.D. 02/28/2022 8:51 AM
--- NOTE | 2022-02-28 09:29 | Electrocardiogram Report ---
Test Reason : Blood Pressure : / mmHG Vent. Rate : 109 BPM Atrial Rate : 109 BPM P-R Int : 140 ms QRS Dur : 078 ms QT Int : 318 ms P-R-T Axes : 039 055 031 degrees QTc Int : 428 ms Sinus tachycardia Left atrial enlargement Borderline ECG No previous ECGs available Confirmed by José Miguel Ferguson ([id number]) on 02/28/2022 9:29:19 AM Referred By: REFERRED SELF Confirmed By:José Miguel Ferguson
[2022-02-28] MEDS ORDERED: HEPARIN SOD (PORCINE) 1000 UNIT/ML IV ONE (09:45)
--- NOTE | 2022-02-28 10:17 | Consultation ---
Date of Consultation February 28, 2022 Assessment & Plan (1) Acute deep vein thrombosis (DVT) of left lower extremity: Pt with extensive distal DVT of LLE and PE, admitted and on heparin drip. She denies significant pain or SOB. Saturating 96% on RA, not tachycardic or hypotensive. No clinical indications for IVC filter insertion at this time. The venous doppler indicates proximal leg veins are patent. Her LLE edema is mild and she does not have significant pain in LLE. Pt discussed with Dr Saldana. No indications for catheter-directed thrombolysis at this time. No chronic LLE-only edema to indicate May-Thurner Syndrome. Agree with hypercoagulable workup in light of possibly unprovoked DVT/PE, could consider hematology referral as well. Recommend pt begin wearing compression once stable on AC to minimize risk of post-thrombotic syndrome. Pt agreeable to this plan. Please call if needed. (2) Bilateral pulmonary embolism: see above History of Present Illness Reason for Consultation: dvt/pe Attending Physician: Chely Montgomery MD History of Present Illness 42 yo f without significant medical history, admitted with DVT/PE, seen in consultation today for same. Pt states she noted some pain and swelling of L lower leg after sitting for a few hrs going through some boxes at home, which worsened the next day. States she did feel somewhat short of breath when going upstairs as well. Believed the cause of L calf pain to be related to her chronic L knee problems. Denies recent travel, surgery, trauma, illness, oral hormone therapy, control pills, or smoking, but does state she may have been slightly dehydrated and was recently started on topical estrogen last week. No hx of previous DVT or LLE only edema. No family hx of DVT. Pt states the pain in LLE was only 1-2/10 at most, and has no pain presently. Denies SOB. Denies COLEMAN, fever, chest pain, abd pain, N/V, rest pain, claudication, other complaints. Venous US demonstrates LLE DVT from distal femoral vein to tibial veins, as well as superficial thrombus. CTA chest demonstrates PE. Allergies Allergy/AdvReac Type Severity Reaction Status Date / Time gluten Allergy Intermediate GI SYMPTOMS Verified 02/27/22 20:48 grass pollen-perennial rye, Allergy Unknown . Verified 02/27/22 20:48 standar peanut Allergy Unknown HIVES Verified 02/27/22 20:48 ragweed pollen Allergy Unknown . Verified 02/27/22 20:48 Home Medications Medication Instructions Recorded Confirmed Type estradiol 0.01% (0.1 mg/gram) 1 applic vaginal 2XWK 02/27/22 02/27/22 History vaginal cream Patient History Medical History Acute deep vein thrombosis (DVT) of left lower extremity Bilateral pulmonary embolism History of in vitro fertilization Morbid obesity with BMI of 40.0-44.9, adult Urinary incontinence Surgical History H/O knee surgery Family History Grandfather Heart disease Social History Smoking Status: Never smoker Hx Alcohol Use: No Hx Substance Use: No Preferred Language: Monegasque Communication Ability: Effective Organic Chemist Required: No Beliefs That Will Affect Care: None Current Living Situation: Family Feels Safe at Home: Yes Review of Systems Review of Systems: All systems reviewed & are unremarkable except as noted in HPI & below Physical Exam Constitutional: WD/WN, vitals as above + obese, healthy appearing, cooperative and comfortable; not disheveled and not in distress ENMT: Ears: no hearing impairment Neck: trachea midline Respiratory: normal respiratory effort, lungs clear to auscultation Cardiovascular: Rate/Rhythm: regular rate and regular rhythm Vessels: normal peripheral pulses, posterior tibial pulses present, dorsalis pedis pulses present and radial pulses present Extremities: normal capillary refill, + calf tenderness and + edema (trace edema LLE) Gastrointestinal (Abdomen): Inspection/Auscultation: abdomen normal to inspection and normal bowel sounds Percussion/Palpation: abdomen soft; abdomen nontender Musculoskeletal: no cyanosis or clubbing, extremities motor strength 5/5 Skin: no rashes, warm and dry (L calf warm compared to R, mildly tender, no erythema) Neurologic: moves all extremities and awake; no focal motor deficits and not confused Psychiatric: A+Ox3, euthymic affect Results & Data ([place]) Vital Signs (Past 12 Hours) Vital Signs Temp Pulse Pulse Resp BP Pulse Ox O2 Del Method 02/28/22 09:28 87 02/28/22 08:01 36.9 C 87 20 106/61 96 Room Air 02/28/22 06:18 89 02/28/22 05:27 37.1 C 90 18 130/82 97 Room Air 02/28/22 04:04 37.0 C 86 18 124/73 97 Room Air 02/28/22 00:40 37.1 C 97 H 18 103/72 98 Room Air 02/27/22 23:04 110 H 18 132/89 97 Room Air
[2022-02-28] MEDS: HEPARIN SODIUM/DEXTROSE 25,000 UNITS/500 ML BAG IV SCH (12:41)
--- NOTE | 2022-02-28 12:42 | XCELERA ---
[id number]
[2022-02-28] MEDS ORDERED: WARFARIN SOD 10 MG TAB PO ONE (13:17)
--- NOTE | 2022-02-28 15:44 | Discharge Summary ---
Date of Service February 28, 2022 Admission HPI Per Admitting Provider 42 YOF with medical history of: Urinary incontinence, Obesity. Patient comes to the EMD for 4 day history of dyspnea associated with left leg pain. The patient noted her dyspnea began while walking up stairs. The next day she noted pain in behind her left knee. This progressed to increase in dyspnea when just walking and pain extending down to her calf, with increase in foot and ankle swelling this morning. Patient originally thought that she strained her left knee, as she was sitting on a bed cleaning out a closet for a few hours. She previously had surgery on that knee and it does get sore. In the EMD the patient had routine labs performed to include d- dimer. D-dimer was elevated and patient had venous ultrasound performed while in triage. This returned with extensive DVT of the left lower extremity to include distal femoral, popliteal, post tib and peroneal with superficial thrombus of the gastroc. She then had a CTA of the chest performed with bilateral pulmonary embolisms. CT scan reports right heart strain. minimal trace pericardial effusion. Patient states that she has not been on any long car trips, or flights, no trauma to the leg. She does have a young daughter so is not sedentary. Patient is tachycardic on arrival with HR 110-100, BP stable, SPO2 100-99% on room air and RR 18-20. HScTNI not elevated, BNP is drawn on admission. PESI score of I. Patient will be admitted for anticoagulation and transition to oral agent noting her obesity and extent of left lower leg DVT. Hypercoagulable work up initiated prior to Heparin bolus and infusion. Admit to tele, obtain ECHO in am. Consult Vascular Surgery for any therapeutics for her left leg DVT. Patient has recently had PAP smear completed- patient reports Negative , Mammogram patient reports: Negative. She has no family history known of any clotting disorders or blood clots. She is vaccinated for COVID and has not had this in the past that she knows of. COVID test on admission is: NEGATIVE Principal Diagnosis Left lower extremity deep vein thrombosis with bilateral pulmonary emboli Discharge Data Allergies Allergy/AdvReac Type Severity Reaction Status Date / Time gluten Allergy Intermediate GI SYMPTOMS Verified 02/27/22 20:48 grass pollen-perennial rye, Allergy Unknown . Verified 02/27/22 20:48 standar peanut Allergy Unknown HIVES Verified 02/27/22 20:48 ragweed pollen Allergy Unknown . Verified 02/27/22 20:48 Consultations 02/27/22 21:53 ED Decision to Admit Stat 02/27/22 23:50 Consult Vascular Surgery Routine Ordered Studies 02/27/22 18:42 US venous doppler LE LT Stat 02/27/22 20:44 CT angio chest PE protocol Urgent Hospital Course (1) Bilateral pulmonary embolism: (1) Bilateral pulmonary embolism: Plan: Patient with bilateral pulmonary embolism - - CT chest noting right heart strain, echo showing elevated RV pressure with normal function and normal EF - HsCTNI negative - No evidence of organ dysfunction and not hypoxic, blood pressure stable- Shock index: 0.833 - Hypercoagulable labs sent and pending - If negative, consider unprovoked DVT and PE. - Health screenings completed - reports normal PAP/Mammo- unable to verify reports - No wbc elevation or elevated NLR - BMI 45. patient will be started on warfarin 10 mg daily in hospital and bridged with Lovenox 150 mg every 12 hour until bridging successful. - INR ordered for Saturday afternoon, I will call pt with those results and coordinate care thereafter - F/u with Dr. Kimball on saturday, March 05 for hospitalization f/u. (2) Acute deep vein thrombosis (DVT) of left lower extremity: Plan: Extensive left lower leg thrombus extending to distal femoral vein - heparin infusion started and switched to lovenox bid and bridging to warfarin - deep as well as superficial DVT - Vascular surgery consult for evaluation of therapeutics: no intervention other than anticoagulation (3) Morbid obesity with BMI of 40.0-44.9, adult: Plan: Weight reduction would be beneficial to reduce overall CV morbidity - HGB A1C of 5.7 indicative of prediabetes - Lipids WNL (4) Urinary incontinence: Plan: Continue estrogen cream on d/c as topical estrogen should not increase clotting risk (2) Acute deep vein thrombosis (DVT) of left lower extremity: (3) Morbid obesity with BMI of 40.0-44.9, adult: (4) Urinary incontinence: Total Time Total Time Spent Total Time Spent (In Minutes): 30 Discharge Plan Discharge Items Patient Disposition: Home - Self-Care Reason For Visit: PULMONARY EMBOLISM, DVT Discharge Diagnosis: DVT, bilateral pulmonary embolism Activity: Per Instructions section Non-emergency contact: Primary Care Provider Call non-emergency contact if: you have any medication questions and your sym ptoms worsen Follow-up/Referrals: Tasha Lott CRNP [Primary Care Provider] - Thiago Kimball DO [Resident] - Diet: Regular Addtl Attending Provider Instructions: You were evaluated in the hospital for the concern of left ankle swelling as well as calf pain. While you were here it was found that you had an extensive deep vein thrombosis in your left lower extremity as well as bilateral pulmonary emboli. Thankfully you were hemodynamically stable and saturating oxygen well and for this reason you did not require any invasive intervention. You were started on anticoagulation in the hospital and we are going to transition you to Coumadin as discussed. Coumadin takes 3 days to begin working so in the meantime you will be injecting yourself with Lovenox 150 mg twice a day. On March 02, in the afternoon, [facility] done to see where you are at with your warfarin therapy and if you can stop taking the Lovenox. If your INR is less than 2, you will need to continue the Lovenox and we will up your Coumadin dose and recheck your INR in another 3 days. We will continue to do so until your INR is between 2 and 3 consistently. As discussed, it is important to keep your diet consistent so that you are taking the same amount of vitamin K in weekly. Otherwise, at discharge you still have your hypercoagulability work-up pending and these results will be discussed with you by either myself or your primary care provider at your follow-up appointment. I called your primary care provider's office at [facility] because your primary care provider is booked out for a few weeks, I set you up with myself next week with the appointment time yet to be determined. You will receive a call regarding this appointment. It has been a pleasure to be a part of your care and we wish you the best in both your health and recovery. Anticoagulation instructions: February 28: You took your first dose of 10 mg of warfarin (Coumadin). Tonight at 9 PM you will inject yourself for the first time with Lovenox March 01: You will take warfarin in the morning. You inject yourself with Lovenox at 9 AM and 9 PM. March 02: You will again take your warfarin in the morning. You will inject yourself with Lovenox at 9 AM and 9 PM. You are to get your INR checked at the [facility]. Please do so in the afternoon. You will either hear from me regarding this result late Saturday afternoon or early Saturday morning. If you are a therapeutic dose based off of your INR for your warfarin, we can discontinue the Lovenox otherwise we will have to repeat the cycle above with a higher dose of warfarin and recheck your INR 3 days after that dose change. Pending Studies at Discharge: Yes Studies:: Hypercoagulability work-up Stand-Alone Forms: [facility], Smoking Cessation Medications and DC Order Prescriptions: New enoxaparin 150 mg/mL syringe 150 mg subcut Q12H Qty: 10 2RF warfarin 5 mg tablet 10 mg PO DAILY 30 Days Qty: 60 3RF Continued estradiol 0.01 % (0.1 mg/gram) cream 1 applic vaginal 2XWK Rx Instructions: apply 0.5 gm around urethra Discharge Orders: Discharge Order (Routine); Ordered 02/28/22 Ordered By: Thiago Mondragon/Other Patient Handouts: What to Know When TakingWarfarin, DVT Dc Admission Data Admit Date/Time: 02/27/22 22:37 Attending Provider: Chely Montgomery Admit Provider: Renee Camargo Primary Care Provider: Tasha Lott Other Providers: Renee Camargo ; Piotr Saldana Other Interventions: Discharge Summary Assessment (RN) Last Done: 02/28/22 15:34 Supervising Physician Co-Signing Physician Notes Resident Physician Supervision Note: I independently interviewed and examined the patient and verified the [place] history and physical, reviewed labs and image studies and agree with resident Dr. Kimball findings and care plan. Discharge exam - General - not in any distress. heart - RRR No respiratory distress Left leg with some tenderness. Neuro/psych - AAOx3. normal mood affect.
[2022-02-28 16:15] LABS: Partial Thromboplastin Ratio 1.6; Partial Thromboplastin Time 43.6 Seconds (21.0-31.0)
[2022-03-07 07:43] LABS: Anti-Thrombin III Activity 94 % normal (80-135); PTT LA Screen 42 sec (<=40)
[2022-03-07 10:55] LABS: Lupus Hex Phase (Rflxdonotord) Negative (Negative)
== END 2022-02-28 16:43 | disposition home or self-care (01) | DRG 176 ==
LOC: ED 17:23 → SUATTDRO 22:37 → EDINP 22:37 → 2E 02-28 01:30